=== PATIENT | male | born 1965 | race Caucasian/White ===

== ENCOUNTER → 2020-01-28 | Outpatient (CLI) | payer MEDICAID ==
[2020-01-28 14:09] LABS: ALBUMIN 3.5 g/dL (3.4-5.0); CALCIUM 8.9 mg/dL (8.5-10.1); CARBON DIOXIDE 21.5 mmol/L (21-32); CREATININE SERUM 2.8 mg/dL (0.7-1.3); POTASSIUM SERUM 5.2 mmol/L (3.5-5.1); TOTAL PROTEIN, SERUM 6.2 g/dL (6.4-8.2)
[2020-01-28 14:19] LABS: CHOLESTEROL/HDL RATIO 2.2
== END | disposition home or self-care (01) ==
LOC: LB 13:18
DX: E11.9 Type 2 diabetes mellitus without complications (principal); I10 Essential (primary) hypertension; K74.60 Unspecified cirrhosis of liver

== ENCOUNTER 2020-02-16 11:46 | Emergency (ER) | payer MEDICAID ==
[~2020-02-16] VITALS: Ht 182.9 cm; Wt 99.8 kg
[2020-02-16 11:57] VITALS: Ht 182.9 cm; Wt 99.8 kg
[2020-02-16 14:10] VITALS: BP 118/64
== END 2020-02-16 14:10 | disposition home or self-care (01) ==
LOC: ED 11:46
DX: R18.8 Other ascites (principal); E11.9 Type 2 diabetes mellitus without complications